=== PATIENT | male | born 2000 | race Caucasian/White ===

== ENCOUNTER 2019-05-06 10:00 | Emergency (ER) | payer SELFPAY ==
[~2019-05-06] VITALS: Ht 175.3 cm; Wt 127.0 kg
[2019-05-06 10:09] VITALS: BP 139/116
--- NOTE | 2019-05-06 10:18 | NUR ---
wait at lobby
--- NOTE | 2019-05-06 10:19 | NUR ---
pt amb to bed 12
--- NOTE | 2019-05-06 10:56 | NUR ---
PT C/O BILATERAL FOOT PAIN AND PEELING OF SKIN ON TOES. NO BLEEDING AT THIS TIME. PT C/O PAIN UPON PRESSURE ON FEET. PAIN X1 WEEK. MINOR BILATERAL ANKLE SWELLING, NO PITTING EDEMA. AFTER PT TOUCHED FOOT, RT POINTER FINGER BEGAN PEELING. PT HAS USED [place] OIL ON FEET X4 DAYS. PT SITTING IN BED, RELAXED. MEDHX: DENIES
--- NOTE | 2019-05-06 11:36 | NUR ---
PT SITTING IN BED ON PHONE, CALM
[2019-05-06 12:36] VITALS: BP 139/116
--- NOTE | 2019-05-06 12:36 | NUR ---
Patient discharged with v/s stable. Written and verbal after care instructions given and explained. Patient alert, oriented and verbalized understanding of instructions. Ambulatory with to home. All questions addressed prior to discharge. ID band removed. Patient advised to follow up with PMD. Rx of BACITRACIN 500 UNIT TOPICAL, CEPHALEXIN 500 MG, CLOTRIMAZOLE TOPICAL given. Patient educated on indication of medication including possible reaction and side effects. Opportunity to ask questions provided and answered.
== END 2019-05-06 12:36 | disposition home or self-care (01) ==
LOC: MED 10:00
DX: L03.115 Cellulitis of right lower limb (principal); L03.116 Cellulitis of left lower limb; B35.3 Tinea pedis; R03.0 Elevated blood-pressure reading, without diagnosis of hypertension
CPT/HCPCS: 82948; 99283

== ENCOUNTER 2024-02-10 18:02 | Emergency (ER) | payer OTHER ==
[~2024-02-10] VITALS: Ht 175.3 cm; Wt 140.2 kg
[2024-02-10 18:07] VITALS: BP 155/99; PULSE 10; RESP 18; TEMP 97.5; O2SAT 96
[2024-02-10] MEDS: IBUPROFEN 600 MG TAB PO ONE (20:20)
[2024-02-10] MEDS: BACITRACIN OINT 500 UNITS/GM PKT TP ONE (20:21)
[2024-02-10] MEDS ORDERED: AMOX1TAB8 PO (20:24)
[2024-02-10] MEDS ORDERED: BACI-418 TP (20:24)
[2024-02-10] MEDS ORDERED: IBUP-2213 PO (20:25)
[2024-02-10 20:32] VITALS: BP 155/99; PULSE 10; RESP 18; TEMP 97.5; O2SAT 96
== END 2024-02-10 20:32 | disposition home or self-care (01) ==
LOC: MED 18:02
DX: S61.301A Unspecified open wound of left index finger with damage to nail, initial encounter (principal); Z79.899 Other long term (current) drug therapy; W54.0XXA Bitten by dog, initial encounter; Y93.89 Activity, other specified; Y92.89 Other specified places as the place of occurrence of the external cause; Y99.8 Other external cause status
CPT/HCPCS: 90471; 90715; 99283